=== PATIENT | female | born 1985 | race African-American/Black ===

== ENCOUNTER 2017-03-07 22:39 | Emergency (ER) | payer MEDICAID ==
[~2017-03-07] VITALS: Ht 157.5 cm; Wt 68.0 kg
[2017-03-08 00:29] LABS: Basophils # (auto) 0 uL; Basophils % (auto) 0.4 % (0.0-2.0); Eosinophils # (auto) 0.2 uL; Eosinophils % (auto) 2.5 % (0.0-7.0); Hemoglobin 12.5 g/dL (12.2-16.2); Lymphocytes # (auto) 3.1 uL; Mean Corpuscular Hemoglobin 26.3 pg (28.0-32.0); Mean Corpuscular Hgb Conc. 32.8 g/dL (32.0-36.0); Mean Corpuscular Volume 79.9 fL (80.0-100.0); Monocytes # (auto) 0.8 uL; Monocytes % (auto) 9.2 % (0.0-12.0); Neutrophils # (auto) 4.9 uL; Neutrophils % (auto) 53.9 % (37.0-80.0); Platelet Count (auto) 269 10^3/uL (140-450); Red Cell Distribution Width 13.5 % (11.8-14.3); White Blood Cell 9.1 10^3/uL (4.4-10.8)
[2017-03-08 00:33] LABS: Urine Bilirubin Negative (Negative); Urine Blood Negative /uL (Negative); Urine Color Yellow (Yellow); Urine Glucose Normal (Normal); Urine Ketone Negative (Negative); Urine Mucus FEW (None Seen); Urine Nitrite Negative (Negative); Urine RBC 1 /hpf (0 - 4); Urine Sperm PRESENT /hpf (None Seen); Urine Squamous Epithelial Cell FEW /hpf (<5)
[2017-03-08 00:38] LABS: Albumin 3.8 g/dL (3.4-5.0); BUN/Creatinine Ratio 16.7; Calcium 8.2 mg/dL (8.5-10.1); Magnesium 2.3 mg/dL (1.6-2.6); Potassium 3.5 mmol/L (3.5-5.1)
[2017-03-08 00:41] LABS: Bilirubin, Total 0.3 mg/dL (0.2-1.0); Total Protein 7.4 g/dL (6.4-8.2)
[2017-03-08 06:11] VITALS: BP 114/71
[2017-03-08] MEDS ORDERED: KETOROLAC TROMETH 60MG/2ML VIAL IM ONE (08:00)
== END 2017-03-08 08:13 | disposition home or self-care (01) ==
LOC: ER 22:49
DX: K80.20 Calculus of gallbladder without cholecystitis without obstruction (principal); N20.0 Calculus of kidney
CPT/HCPCS: 36415; 74176; 80053; 81001; 81025; 83690; 83735; 84702; 85025; 96372; 99285; J1885

== ENCOUNTER 2017-03-18 13:43 | Emergency (ER) | payer MEDICAID ==
[~2017-03-18] VITALS: Ht 160 cm; Wt 64.0 kg
[2017-03-18 14:30] LABS: Basophils # (auto) 0 uL; Basophils % (auto) 0.5 % (0.0-2.0); Eosinophils # (auto) 0.1 uL; Eosinophils % (auto) 1.4 % (0.0-7.0); Hematocrit 39.6 % (36.0-46.0); Lymphocytes # (auto) 1.2 uL; Mean Corpuscular Hemoglobin 25.6 pg (28.0-32.0); Mean Corpuscular Hgb Conc. 32.8 g/dL (32.0-36.0); Mean Corpuscular Volume 78.2 fL (80.0-100.0); Mean Platelet Volume 7.6 fL (6.9-10.8); Monocytes # (auto) 0.9 uL; Neutrophils % (auto) 64.1 % (37.0-80.0); Nucleated Red Blood Cells % 0.1 %; Platelet Count (auto) 256 10^3/uL (140-450); Red Cell Distribution Width 13.5 % (11.8-14.3); White Blood Cell 6.2 10^3/uL (4.4-10.8)
[2017-03-18 14:37] LABS: Albumin 3.7 g/dL (3.4-5.0); Anion Gap 7 (5-15); BUN/Creatinine Ratio 18.3; Blood Urea Nitrogen 13 mg/dL (7-18); Calcium 8.6 mg/dL (8.5-10.1); Carbon Dioxide 23 mmol/L (21-32); Chloride 107 mmol/L (98-107); GFR African American 123 mL/min; GFR Non-African American 101 mL/min; Glucose 131 mg/dL (74-106); Magnesium 2.1 mg/dL (1.6-2.6); Potassium 3.6 mmol/L (3.5-5.1); Sodium 137 mmol/L (136-145)
[2017-03-18 14:48] LABS: Alkaline Phosphatase 61 U/L (45-117); Aspartate Aminotransferase 12 U/L (15-37); Bilirubin, Total 0.4 mg/dL (0.2-1.0); Total Protein 7.4 g/dL (6.4-8.2)
[2017-03-18] MEDS ORDERED: SODIUM CHLORIDE 0.9% 1,000 ML IV ONE (15:04)
[2017-03-18] MEDS ORDERED: METOCLOPRAMIDE HCL 5MG/ml INJ 2ml VIAL IV ONE (15:15)
[2017-03-18] MEDS ORDERED: ASPirin 81 mg TAB PO ONE (15:15)
[2017-03-18] MEDS ORDERED: KETOROLAC TROMETH 30 MG/ML 1ML VIAL IV ONE (15:15)
[2017-03-18 16:07] LABS: INR 1.08 (0.9-1.15); Prothrombin Time 11.8 sec (9.37-12.3)
[2017-03-18 16:08] LABS: Partial Thromboplastin Time 27.6 sec (22.64-33.71)
[2017-03-18 19:41] LABS: Platelet Estimate Adequate
[2017-03-18 19:42] LABS: Microcytosis Slight
[2017-03-18] MEDS ORDERED: IOHEXOL 350 MG/ML 100ML IJ ONE (20:09)
[2017-03-18] MEDS ORDERED: MORPHINE SULF INJ 2 MG/ML SYRINGE 1ML IV ONE (21:30)
[2017-03-18] MEDS: ONDANSETRON HCL 4 MG/2 ML VIAL IV ONE ×2 (21:51→21:52)
[2017-03-18 22:56] VITALS: BP 101/60
== END 2017-03-19 00:36 | disposition home or self-care (01) ==
LOC: ER 13:43
DX: R07.9 Chest pain, unspecified (principal); R42 Dizziness and giddiness; R94.31 Abnormal electrocardiogram [ECG] [EKG]
CPT/HCPCS: 36415; 71020; 71275; 76536; 80053; 83735; 84443; 84484; 84702; 85025; 85379; 85610; 85652; 85730; 94761; 96361; 96374; 96375; 99285; J1885; J2765; J7030; Q9967

== ENCOUNTER 2018-04-06 15:48 | Inpatient (IN) | payer MEDICAID ==
[~2018-04-06] VITALS: Ht 157.5 cm; Wt 73.3 kg
[2018-04-06 17:19] LABS: Urine Bacteria FEW /hpf (None Seen); Urine Blood Negative /uL (Negative); Urine Specific Gravity 1.005 (1.001-1.035); Urine WBC 1 /hpf (0 - 5)
[2018-04-06 18:38] LABS: Basophils # (auto) 0 uL; Eosinophils # (auto) 0.2 uL; Red Blood Cells 4.77 10^6/uL (4.0-5.20); White Blood Cell 8.6 10^3/uL (4.4-10.8)
[2018-04-06 18:39] LABS: Basophils % (auto) 0.2 % (0.0-2.0); Eosinophils % (auto) 1.9 % (0.0-7.0); Hemoglobin 12.6 g/dL (12.2-16.2); Lymphocytes # (auto) 2.4 uL; Lymphocytes % (auto) 27.4 % (10.0-50.0); Mean Corpuscular Hemoglobin 26.4 pg (28.0-32.0); Mean Corpuscular Hgb Conc. 33.2 g/dL (32.0-36.0); Mean Corpuscular Volume 79.6 fL (80.0-100.0); Monocytes # (auto) 0.8 uL; Monocytes % (auto) 8.8 % (0.0-12.0); Neutrophils # (auto) 5.3 uL; Neutrophils % (auto) 61.7 % (37.0-80.0); Nucleated Red Blood Cells % 0.1 %; Platelet Count (auto) 298 10^3/uL (140-450); Red Cell Distribution Width 13.7 % (11.8-14.3)
[2018-04-06 18:51] LABS: INR 0.94 (0.9-1.15); Partial Thromboplastin Time 28.4 sec (23.78-33.04); Prothrombin Time 10.1 sec (9.27-12.13)
[2018-04-06 18:55] LABS: Albumin 3.7 g/dL (3.4-5.0); BUN/Creatinine Ratio 15.5; Calcium 8.1 mg/dL (8.5-10.1)
[2018-04-06 18:58] LABS: Bilirubin, Total 0.2 mg/dL (0.2-1.0); Total Protein 7.4 g/dL (6.4-8.2)
[2018-04-06] MEDS ORDERED: ONDANSETRON HCL 4 MG/2 ML VIAL IV PRN (20:30)
[2018-04-06] MEDS ORDERED: cefTRIAXone 1GM/50ML D5W 50 ML IV ONE (20:30)
[2018-04-06] MEDS ORDERED: ACETAMINOPHEN 325 MG TAB PO PRN (20:30)
[2018-04-06] MEDS ORDERED: TEMAZEPAM 15 MG CAP PO PRN (20:30)
[2018-04-06] MEDS: HYDROcodone-ACET 5/325MG TAB PO PRN (21:04)
[2018-04-06] MEDS ORDERED: MILK OF MAGNESIA 30ML SUSP PO ONE (21:45)
[2018-04-06 22:00] VITALS: BP 116/70
[2018-04-06] MEDS: FAMOTIDINE 20 MG TAB PO SCH (22:02)
[2018-04-06] MEDS: DOCUSATE SOD 100 MG CAP PO SCH (22:03)
[2018-04-06] MEDS ORDERED: IBUP800T24 PO (22:11)
[2018-04-06 22:24] VITALS: BP 116/78
[2018-04-07 05:36] VITALS: BP 110/69
[2018-04-07 06:15] LABS: Basophils # (auto) 0 uL; Monocytes # (auto) 0.8 uL; Nucleated Red Blood Cells % 0.1 %
[2018-04-07 06:17] LABS: Basophils % (auto) 0.4 % (0.0-2.0); Eosinophils # (auto) 0.2 uL; Eosinophils % (auto) 2.1 % (0.0-7.0); Hematocrit 36.1 % (36.0-46.0); Lymphocytes # (auto) 2.4 uL; Mean Corpuscular Hgb Conc. 33.2 g/dL (32.0-36.0); Mean Corpuscular Volume 79.4 fL (80.0-100.0); Monocytes % (auto) 10.4 % (0.0-12.0); Neutrophils # (auto) 4.2 uL; Neutrophils % (auto) 55.1 % (37.0-80.0); Platelet Count (auto) 264 10^3/uL (140-450); Red Blood Cells 4.55 10^6/uL (4.0-5.20); Red Cell Distribution Width 13.8 % (11.8-14.3); White Blood Cell 7.6 10^3/uL (4.4-10.8)
[2018-04-07 06:20] LABS: Mean Corpuscular Hemoglobin 26.5 pg (28.0-32.0)
[2018-04-07] MEDS: HYDROcodone-ACET 5/325MG TAB PO PRN ×2 (07:49→18:21)
[2018-04-07 07:50] VITALS: BP 106/64
[2018-04-07 08:35] LABS: Potassium 3.9 mmol/L (3.5-5.1)
[2018-04-07 08:48] LABS: Albumin 3.2 g/dL (3.4-5.0); BUN/Creatinine Ratio 16.2; Bilirubin, Total 0.6 mg/dL (0.2-1.0); Calcium 8.1 mg/dL (8.5-10.1); Total Protein 6.8 g/dL (6.4-8.2)
[2018-04-07 09:35] VITALS: BP 106/64
[2018-04-07] MEDS: cefTRIAXone 1GM/50ML D5W 50 ML IV SCH (09:47)
[2018-04-07] MEDS: DOCUSATE SOD 100 MG CAP PO SCH ×2 (10:00→21:41)
[2018-04-07] MEDS: FAMOTIDINE 20 MG TAB PO SCH ×2 (10:00→21:41)
[2018-04-07 13:25] VITALS: BP 100/62
[2018-04-07] MEDS ORDERED: LIDOCAINE 2% (LOCAL ANESTH.) PF 5ml SDV ONE (13:25)
[2018-04-07] MEDS ORDERED: ROCURONIUM 10MG/ML 10ML VIAL IV ONE (13:25)
[2018-04-07] MEDS ORDERED: MEPERIDINE HCL (50 MG/ML) 1 ML VIAL ONE (13:37)
[2018-04-07] MEDS ORDERED: ESMOLOL HCL 0 ML IV ONE (13:38)
[2018-04-07] MEDS ORDERED: SOD CHL 0.9%/ KCL 20MEQ 1,000 ML IV SCH (13:45)
[2018-04-07] MEDS ORDERED: ceFAZolin 1GM/50ML 50 ML IV ONE (14:21)
[2018-04-07] MEDS ORDERED: PROPOFOL 10 MG/ML 20 ML IV ONE (14:43)
[2018-04-07] MEDS ORDERED: LIDOCAINE 1% INJ PF 5ML AMP ONE (15:03)
[2018-04-07] MEDS ORDERED: SUCCINYLCHOLINE CHLORIDE 20 MG/ML 10ML VIAL IV ONE (15:03)
[2018-04-07] MEDS ORDERED: MIDAZOLAM HCL 1MG/1ML-2 ML VIAL ONE (15:14)
[2018-04-07] MEDS ORDERED: fentaNYL CITRATE 100 MCG/2 ML VL ONE (15:20)
[2018-04-07] MEDS: ONDANSETRON HCL 4 MG/2 ML VIAL IV ONE ×2 (15:30→16:28)
[2018-04-07] MEDS ORDERED: NALOXONE HCL 0.4 MG/ML VIAL IV PRN (15:30)
[2018-04-07] MEDS ORDERED: HYDROmorphone HCL 2 MG/ML VL IV PRN (15:30)
[2018-04-07] MEDS ORDERED: KETOROLAC TROMETH 30 MG/ML 1ML VIAL ONE (15:34)
[2018-04-07] MEDS ORDERED: GLYCOPYRROLATE 0.2 MG/ML 1ML VIAL ONE (15:46)
[2018-04-07] MEDS ORDERED: NEOSTIGMINE 1 MG/ML INJ (10mg/10ML VIAL) ONE (15:46)
[2018-04-07] MEDS: HYDROmorphone HCL 2 MG/ML VL IV PRN ×4 (16:28→16:58)
[2018-04-07 17:26] VITALS: BP 115/68
[2018-04-07] MEDS: D5W/ SOD CHL 0.9%/KCL 20MEQ 1,000 ML IV SCH (17:59)
[2018-04-07 21:36] VITALS: BP 118/73
[2018-04-07] MEDS: MORPHINE SULFATE 4 MG/ML SYR/VIAL IV PRN (21:41)
[2018-04-08] MEDS: D5W/ SOD CHL 0.9%/KCL 20MEQ 1,000 ML IV SCH ×2 (03:53)
[2018-04-08] MEDS: MORPHINE SULFATE 4 MG/ML SYR/VIAL IV PRN (03:53)
[2018-04-08 05:50] VITALS: BP 162/83
[2018-04-08 07:29] LABS: Basophils # (auto) 0 uL; Basophils % (auto) 0.2 % (0.0-2.0); Eosinophils # (auto) 0.1 uL; Hemoglobin 11.9 g/dL (12.2-16.2); Lymphocytes # (auto) 2.1 uL
[2018-04-08 07:32] LABS: Eosinophils % (auto) 0.8 % (0.0-7.0); Hematocrit 36.3 % (36.0-46.0); Lymphocytes % (auto) 21.6 % (10.0-50.0); Mean Corpuscular Hemoglobin 25.9 pg (28.0-32.0); Mean Corpuscular Hgb Conc. 32.9 g/dL (32.0-36.0); Mean Corpuscular Volume 78.6 fL (80.0-100.0); Monocytes # (auto) 0.9 uL; Monocytes % (auto) 8.7 % (0.0-12.0); Neutrophils # (auto) 6.8 uL; Neutrophils % (auto) 68.7 % (37.0-80.0); Platelet Count (auto) 280 10^3/uL (140-450); Red Blood Cells 4.61 10^6/uL (4.0-5.20); Red Cell Distribution Width 13.5 % (11.8-14.3); White Blood Cell 9.9 10^3/uL (4.4-10.8)
[2018-04-08 09:00] VITALS: BP 117/73
[2018-04-08] MEDS: FAMOTIDINE 20 MG TAB PO SCH (09:16)
[2018-04-08] MEDS: cefTRIAXone 1GM/50ML D5W 50 ML IV SCH (09:16)
[2018-04-08] MEDS: DOCUSATE SOD 100 MG CAP PO SCH (09:17)
[2018-04-08] MEDS: HYDROcodone-ACET 5/325MG TAB PO PRN (09:17)
[2018-04-08] MEDS ORDERED: ONDANSETRON HCL 4 MG/2 ML VIAL IV PRN (10:00)
[2018-04-08] MEDS ORDERED: THROAT LOZENGES(CEPASTAT) MT ONE (10:00)
[2018-04-08] MEDS ORDERED: ONDANSETRON HCL 4 MG/2 ML VIAL IV ONE (10:00)
[2018-04-08] MEDS ORDERED: THROAT LOZENGES(CEPASTAT) MT PRN (10:00)
[2018-04-08] MEDS ORDERED: LACTULOSE 20Gm/30ML SOLN PO ONE (10:15)
[2018-04-08 13:00] VITALS: BP 110/69
[2018-04-08 14:48] VITALS: BP 110/69
== END 2018-04-08 16:00 | disposition home or self-care (01) | DRG 263 ==
LOC: ER 15:59 → OVERFLOW 16:00 → WEST WING 21:36
PROVIDERS: ADMIT Nurse Practitioner; ATTEND Internal Medicine
PROC: 0FT44ZZ Resection of Gallbladder, Percutaneous Endoscopic Approach (ICD-10-PCS; principal; 2018-04-07 15:05)
DX: K80.10 Calculus of gallbladder with chronic cholecystitis without obstruction (principal); E66.9 Obesity, unspecified; N39.0 Urinary tract infection, site not specified; K59.00 Constipation, unspecified; Z90.49 Acquired absence of other specified parts of digestive tract
CPT/HCPCS: 36415; 76705; 80053; 81001; 81025; 82150; 82247; 82962; 83690; 85025; 85610; 85730; 86850; 86900; 86901; 96374; 96375; J0330; J0690; J0696; J1885; J2001; J2250; J2405; J2704

== ENCOUNTER 2018-05-27 09:20 | Emergency (ER) | payer MEDICAID ==
[~2018-05-27] VITALS: Ht 157.5 cm; Wt 69.4 kg
[2018-05-27 11:17] LABS: Urine Bacteria FEW /hpf (None Seen); Urine Blood Negative /uL (Negative); Urine Mucus FEW (None Seen); Urine WBC <1 /hpf (0 - 5)
[2018-05-27] MEDS ORDERED: SODIUM CHLORIDE 0.9% 1,000 ML IV ONE (11:30)
[2018-05-27] MEDS ORDERED: ONDANSETRON HCL 4 MG/2 ML VIAL IV ONE (12:00)
[2018-05-27] MEDS ORDERED: MORPHINE SULFATE 4 MG/ML SYR/VIAL IV ONE (12:00)
[2018-05-27 12:10] LABS: Basophils # (auto) 0 uL; Basophils % (auto) 0.5 % (0.0-2.0); Eosinophils # (auto) 0.1 uL; Neutrophils # (auto) 4.7 uL; White Blood Cell 7.7 10^3/uL (4.4-10.8)
[2018-05-27 12:13] LABS: Eosinophils % (auto) 1.7 % (0.0-7.0); Hematocrit 36.5 % (36.0-46.0); Hemoglobin 12.1 g/dL (12.2-16.2); Lymphocytes # (auto) 2.1 uL; Lymphocytes % (auto) 27.2 % (10.0-50.0); Mean Corpuscular Hemoglobin 26.2 pg (28.0-32.0); Mean Corpuscular Hgb Conc. 33.1 g/dL (32.0-36.0); Mean Corpuscular Volume 79.3 fL (80.0-100.0); Monocytes # (auto) 0.8 uL; Monocytes % (auto) 9.9 % (0.0-12.0); Neutrophils % (auto) 60.7 % (37.0-80.0); Platelet Count (auto) 271 10^3/uL (140-450); Red Blood Cells 4.61 10^6/uL (4.0-5.20); Red Cell Distribution Width 13.3 % (11.8-14.3)
[2018-05-27 12:30] LABS: Amylase 60 U/L (25-115); Lipase 120 U/L (73-393)
[2018-05-27 12:34] LABS: Calcium 7.5 mg/dL (8.5-10.1); Potassium 3.5 mmol/L (3.5-5.1)
[2018-05-27 12:41] LABS: BUN/Creatinine Ratio 13.8; Bilirubin, Total 0.5 mg/dL (0.2-1.0); Total Protein 6.2 g/dL (6.4-8.2)
[2018-05-27 13:40] VITALS: BP 87/46
== END 2018-05-27 14:49 | disposition home or self-care (01) ==
LOC: ER 09:22
DX: K43.2 Incisional hernia without obstruction or gangrene (principal); R11.2 Nausea with vomiting, unspecified; Z87.442 Personal history of urinary calculi; Z90.49 Acquired absence of other specified parts of digestive tract
CPT/HCPCS: 36415; 74176; 76705; 80053; 81001; 81025; 82150; 83690; 85025; 96361; 96374; 96375; 99284; J2270; J2405; J7030

== ENCOUNTER 2018-09-22 16:29 | Emergency (ER) | payer MEDICAID ==
[~2018-09-22] VITALS: Ht 157.5 cm; Wt 68.0 kg
[2018-09-22 17:17] LABS: Basophils # (auto) 0 uL; Basophils % (auto) 0.5 % (0.0-2.0); Eosinophils # (auto) 0.2 uL; Eosinophils % (auto) 1.9 % (0.0-7.0); Hematocrit 38.7 % (36.0-46.0); Hemoglobin 12.8 g/dL (12.2-16.2); Lymphocytes # (auto) 2.1 uL; Lymphocytes % (auto) 26.2 % (10.0-50.0); Mean Corpuscular Hemoglobin 26.1 pg (28.0-32.0); Mean Corpuscular Hgb Conc. 33.1 g/dL (32.0-36.0); Mean Corpuscular Volume 78.7 fL (80.0-100.0); Monocytes # (auto) 0.6 uL; Monocytes % (auto) 7.2 % (0.0-12.0); Neutrophils # (auto) 5.1 uL; Neutrophils % (auto) 64.2 % (37.0-80.0); Nucleated Red Blood Cells % 0.1 %; Platelet Count (auto) 282 10^3/uL (140-450); Red Blood Cells 4.92 10^6/uL (4.0-5.20); Red Cell Distribution Width 13.9 % (11.8-14.3); White Blood Cell 7.9 10^3/uL (4.4-10.8)
[2018-09-22 17:24] LABS: Urine Bacteria NONE SEEN /hpf (None Seen); Urine Blood Negative /uL (Negative); Urine Mucus FEW (None Seen); Urine Specific Gravity 1.014 (1.001-1.035); Urine WBC 1 /hpf (0 - 5)
[2018-09-22 17:31] LABS: Albumin 3.7 g/dL (3.4-5.0); Anion Gap 3 (5-15); Blood Urea Nitrogen 11 mg/dL (7-18); Calcium 8.7 mg/dL (8.5-10.1); Carbon Dioxide 28 mmol/L (21-32); Chloride 108 mmol/L (98-107); Glucose 104 mg/dL (74-106); Potassium 3.3 mmol/L (3.5-5.1); Sodium 139 mmol/L (136-145)
[2018-09-22 17:38] LABS: Alanine Aminotransferase 194 U/L (13-56); Alkaline Phosphatase 71 U/L (45-117); Aspartate Aminotransferase 103 U/L (15-37); BUN/Creatinine Ratio 15.9; Bilirubin, Total 0.5 mg/dL (0.2-1.0); GFR African American 126 mL/min; GFR Non-African American 104 mL/min; Total Protein 7.6 g/dL (6.4-8.2)
[2018-09-23] MEDS ORDERED: PANTOPRAZOLE 40 MG TAB PO ONE ×2 (05:15→05:30)
[2018-09-23] MEDS: ALUM & MAG HYDROX-SIMETH LIQ(MAALOX) 30 ML PO ONE (05:31)
[2018-09-23] MEDS: PANTOPRAZOLE 40 MG TAB PO ONE (05:40)
[2018-09-23 05:46] VITALS: BP 104/59
== END 2018-09-23 05:59 | disposition home or self-care (01) ==
LOC: ER 16:35
DX: R10.11 Right upper quadrant pain (principal); Z90.49 Acquired absence of other specified parts of digestive tract; Z87.442 Personal history of urinary calculi
CPT/HCPCS: 36415; 74022; 76705; 80053; 81001; 84484; 84702; 85025; 93005

== ENCOUNTER 2019-05-09 12:51 | Emergency (ER) | payer MEDICAID ==
[~2019-05-09] VITALS: Ht 157.5 cm; Wt 74.8 kg
[2019-05-09 14:04] LABS: Basophils # (auto) 0 uL; Basophils % (auto) 0.5 % (0.0-2.0); Eosinophils # (auto) 0.1 uL; Hemoglobin 12.4 g/dL (12.2-16.2); Monocytes # (auto) 0.6 uL; Neutrophils % (auto) 58.3 % (37.0-80.0)
[2019-05-09 14:06] LABS: Eosinophils % (auto) 2.1 % (0.0-7.0); Hematocrit 38.6 % (36.0-46.0); Lymphocytes % (auto) 29.6 % (10.0-50.0); Mean Corpuscular Hemoglobin 25.5 pg (28.0-32.0); Mean Corpuscular Hgb Conc. 32.1 g/dL (32.0-36.0); Mean Corpuscular Volume 79.6 fL (80.0-100.0); Monocytes % (auto) 9.5 % (0.0-12.0); Neutrophils # (auto) 3.9 uL; Platelet Count (auto) 271 10^3/uL (140-450); Red Blood Cells 4.85 10^6/uL (4.0-5.20); Red Cell Distribution Width 13.6 % (11.8-14.3); White Blood Cell 6.7 10^3/uL (4.4-10.8)
[2019-05-09 14:33] LABS: Urine Amorphous Crystal FEW /hpf (None Seen); Urine Bacteria FEW /hpf (None Seen); Urine Blood 2+ /uL (Negative); Urine Hyaline Cast FEW /lpf (0 - 2); Urine Mucus FEW (None Seen); Urine Specific Gravity 1.021 (1.001-1.035); Urine WBC 36 /hpf (0 - 5)
[2019-05-09 14:39] LABS: Albumin 3.5 g/dL (3.4-5.0); Calcium 8.9 mg/dL (8.5-10.1); Potassium 3.6 mmol/L (3.5-5.1)
[2019-05-09 14:42] LABS: BUN/Creatinine Ratio 12.8; Bilirubin, Total 0.4 mg/dL (0.2-1.0); Total Protein 7.2 g/dL (6.4-8.2)
[2019-05-09] MEDS ORDERED: KETOROLAC TROMETH 60MG/2ML VIAL IM ONE (16:45)
[2019-05-09 17:26] VITALS: BP 114/75
== END 2019-05-09 17:27 | disposition home or self-care (01) ==
LOC: ER 13:04
DX: N39.0 Urinary tract infection, site not specified (principal); F17.210 Nicotine dependence, cigarettes, uncomplicated; Z90.49 Acquired absence of other specified parts of digestive tract
CPT/HCPCS: 36415; 74176; 80053; 81001; 81025; 83690; 85025; 96372; 99284; J1885

== ENCOUNTER 2021-09-30 10:05 | Emergency (ER) | payer MEDICAID ==
[~2021-09-30] VITALS: Ht 157.5 cm; Wt 74.8 kg
[2021-09-30 10:42] LABS: Basophils # (auto) 0 10 ^3/uL (0-0.2); Eosinophils # (auto) 0.1 10 ^3/uL (0-0.8); Hemoglobin 12.4 g/dL (12.2-16.2); Neutrophils # (auto) 3.8 10 ^3/uL (1.6-8.6); White Blood Cell 6.3 10^3/uL (4.4-10.8)
[2021-09-30 10:44] LABS: Basophils % (auto) 0.5 % (0.0-2.0); Eosinophils % (auto) 1.9 % (0.0-7.0); Hematocrit 37.3 % (36.0-46.0); Lymphocytes # (auto) 1.9 10 ^3/uL (0.4-5.4); Lymphocytes % (auto) 30.1 % (10.0-50.0); Mean Corpuscular Hemoglobin 25.6 pg (28.0-32.0); Mean Corpuscular Hgb Conc. 33.2 g/dL (32.0-36.0); Mean Corpuscular Volume 76.9 fL (80.0-100.0); Monocytes # (auto) 0.4 10 ^3/uL (0-1.3); Monocytes % (auto) 6.8 % (0.0-12.0); Neutrophils % (auto) 60.7 % (37.0-80.0); Red Blood Cells 4.85 10^6/uL (4.0-5.20); Red Cell Distribution Width 13.6 % (11.8-14.3)
[2021-09-30 11:03] LABS: Potassium 3.9 mmol/L (3.5-5.1)
[2021-09-30 11:11] LABS: Albumin 3.6 g/dL (3.4-5.0); BUN/Creatinine Ratio 10.8; Bilirubin, Total 0.3 mg/dL (0.2-1.0); Calcium 8.8 mg/dL (8.5-10.1); Total Protein 7.4 g/dL (6.4-8.2)
[2021-09-30 12:48] LABS: Urine Bacteria FEW /hpf (None Seen); Urine Blood 2+ /uL (Negative); Urine Specific Gravity 1.009 (1.001-1.035); Urine WBC 5 /hpf (0 - 5)
[2021-09-30] MEDS ORDERED: METR500T PO (15:45)
[2021-09-30] MEDS ORDERED: CEPH-509 PO (15:45)
[2021-09-30 16:11] VITALS: BP 122/72
== END 2021-09-30 16:12 | disposition home or self-care (01) ==
LOC: ER 10:05
DX: K52.9 Noninfective gastroenteritis and colitis, unspecified (principal); N39.0 Urinary tract infection, site not specified; F17.210 Nicotine dependence, cigarettes, uncomplicated; Z90.49 Acquired absence of other specified parts of digestive tract; Z79.899 Other long term (current) drug therapy
CPT/HCPCS: 36415; 74176; 80053; 81001; 83690; 85025